=== PATIENT | male | born 1995 | race Caucasian/White ===

== ENCOUNTER 2024-07-17 21:57 | Emergency (ER) | payer MEDICAID, OTHER ==
[~2024-07-17] VITALS: Ht 180.3 cm; Wt 97.0 kg
[2024-07-17 22:04] VITALS: TEMP 36.7; O2SAT 97
[2024-07-17 23:55] VITALS: BP 98/54; PULSE 94; RESP 20; O2SAT 99
[2024-07-17] MEDS: MORPHINE SULFATE 4 MG/ML INJ (FOR IV/IM USE) IM ONE (23:55)
== END 2024-07-17 23:57 | disposition home or self-care (01) ==
LOC: ER 21:57
DX: G89.29 Other chronic pain (principal); M79.10 Myalgia, unspecified site; F31.9 Bipolar disorder, unspecified; F41.9 Anxiety disorder, unspecified; Z98.890 Other specified postprocedural states; Z88.1 Allergy status to other antibiotic agents
CPT/HCPCS: 99283; 96372; J2270